=== PATIENT | male | born 1930 | race Caucasian/White ===

== ENCOUNTER 2018-07-19 20:38 | Inpatient (IN) | payer MEDICARE, BC ==
[~2018-07-19] VITALS: Ht 175.3 cm; Wt 86.2 kg
[2018-07-19 21:09] LABS: BASOPHILS # (AUTO) 0.1 K/uL (0.0-8.0); BASOPHILS % (AUTO) 1.1 % (0.0-2.0); EOSINOPHILS # (AUTO) 0.3 K/uL (0.0-0.7); EOSINOPHILS % (AUTO) 6.4 % (0.0-7.0); HEMATOCRIT 30.7 % (36.7-47.1); HEMOGLOBIN 10.3 g/dL (12.5-16.3); LYMPHOCYTES # (AUTO) 1.5 K/uL (20.0-40.0); LYMPHOCYTES % (AUTO) 29.8 % (20.5-51.5); MEAN CORPUSCULAR HEMOGLOBIN 30.8 uug (23.8-33.4); MEAN CORPUSCULAR HGB CONC 34 g/dL (32.5-36.3); MONOCYTES # (AUTO) 0.7 K/uL (2.0-10.0); MONOCYTES % (AUTO) 12.6 % (0.0-11.0); NEUTROPHILS # (AUTO) 2.6 K/uL (1.8-8.9); NEUTROPHILS % (AUTO) 50.1 % (38.5-71.5); PLATELET COUNT (AUTO) 191 K/uL (152-348); RED BLOOD CELL COUNT(AUTO) 3.33 MIL/uL (4.06-5.63); WHITE BLOOD COUNT (AUTO) 5.2 K/uL (3.6-10.2)
[2018-07-19 21:14] LABS: CARBON DIOXIDE 27 mmol/L (21-32); CHLORIDE 108 mmol/L (98-107); CREATININE 1.8 mg/dL (0.6-1.3); GLUCOSE 120 mg/dL (74-106); POTASSIUM 4.1 mmol/L (3.5-5.1); UREA NITROGEN, BLOOD 33 mg/dL (7-18)
[2018-07-19 21:20] LABS: ACETAMINOPHEN 5.2 ug/mL (10-30); ALANINE AMINOTRANSFERASE 10 U/L (16-63); ALKALINE PHOSPHATASE 93 U/L (50-136); ASPARTATE AMINOTRANSFERASE 16 U/L (15-37); BILIRUBIN,DIRECT 0.1 mg/dL (0.0-0.2); BILIRUBIN,TOTAL 0.2 mg/dL (0.2-1.0); TOTAL PROTEIN, SERUM 6.4 g/dL (6.4-8.2)
[2018-07-19 21:27] LABS: ETHANOL < 3 MG/DL (0-0)
[2018-07-19] MEDS ORDERED: BREX0.5T PO (21:42)
[2018-07-19] MEDS ORDERED: ACET-73 PO ×2 (21:42)
[2018-07-19] MEDS ORDERED: ALEN70TA45 PO (21:42)
[2018-07-19] MEDS ORDERED: DULO30CA51 PO (21:42)
[2018-07-19] MEDS ORDERED: ADVAIR 230/21 IH (21:42)
[2018-07-19] MEDS ORDERED: TRIA15CR2 TP (21:42)
[2018-07-19] MEDS ORDERED: PSYLLIUM PO (21:42)
[2018-07-19] MEDS ORDERED: CLOT15CR4 TP (21:42)
[2018-07-19] MEDS ORDERED: DONE10TA44 PO (21:42)
[2018-07-19] MEDS ORDERED: LEVO75TA7 PO (21:42)
[2018-07-19] MEDS ORDERED: OLAN2.5T3 PO (21:42)
[2018-07-19] MEDS ORDERED: PSYL0.525 PO (21:42)
[2018-07-19] MEDS ORDERED: CHOL100045 PO (21:42)
[2018-07-19] MEDS ORDERED: ATOR10TA PO (21:42)
[2018-07-19] MEDS ORDERED: MEMA28CA5 PO (21:42)
[2018-07-19] MEDS ORDERED: CARB-93 PO (21:42)
[2018-07-19] MEDS ORDERED: PANT40TA4 PO (21:42)
[2018-07-19] MEDS ORDERED: TAMS0.4C34 PO (21:42)
[2018-07-19] MEDS ORDERED: BENZ0.5T43 PO (21:42)
[2018-07-19] MEDS ORDERED: RIVA10TA PO (21:42)
[2018-07-19] MEDS ORDERED: GABA-532 PO (21:42)
[2018-07-19] MEDS ORDERED: DOCU100C36 PO (21:42)
[2018-07-19 21:48] LABS: THYROID STIMULATING HORMONE 1.068 mIU/mL (0.358-3.740)
[2018-07-19] MEDS ORDERED: IPRATROPIUM BROMIDE 0.5 MG/2.5 ML NEBU NEB ONE (22:30)
[2018-07-19] MEDS ORDERED: ALBUTEROL SULFATE 2.5 MG/3 ML NEBU NEB ONE (22:30)
[2018-07-19] MEDS ORDERED: IPRATROPIUM BROMIDE 0.5 MG/2.5 ML NEBU ONE (22:36)
[2018-07-19] MEDS ORDERED: ALBUTEROL SULFATE 2.5 MG/ 0.5 ML NEBU ONE (22:37)
[2018-07-19 23:00] VITALS: BP 146/67
[2018-07-19] MEDS ORDERED: MAG HYDROX/AL HYDROX/SIMETH 30 ML LIQUID UDC PO PRN (23:00)
[2018-07-19] MEDS ORDERED: MAGNESIUM HYDROXIDE 30 ML LIQUID UDC PO PRN (23:00)
[2018-07-19] MEDS ORDERED: LORAZEPAM 0.5 MG TABLET PO PRN (23:45)
[2018-07-20] MEDS: TEMAZEPAM 7.5 MG CAPSULE PO PRN ×2 (00:09→22:58)
[2018-07-20] MEDS ORDERED: ALBUTEROL SULFATE 2.5 MG/ 0.5 ML NEBU NEB PRN (07:00)
[2018-07-20 08:00] VITALS: BP 145/71
[2018-07-20] MEDS: ALBUTEROL SULFATE 2.5 MG/3 ML NEBU NEB PRN ×2 (08:54→21:08)
[2018-07-20] MEDS ORDERED: DOCUSATE SODIUM 100 MG CAPSULE PO PRN (10:15)
[2018-07-20] MEDS: ACETAMINOPHEN 325 MG TABLET PO PRN ×2 (10:51→22:58)
[2018-07-20] MEDS: CARBIDOPA/LEVODOPA 25-100MG TABLET PO SCH ×2 (12:31→16:27)
[2018-07-20] MEDS ORDERED: PNEUMOCOCCAL 23-VAL P-SAC VAC 0.5 ML VIAL IM ONE (13:00)
[2018-07-20 16:00] VITALS: BP 155/73
[2018-07-20] MEDS: DULOXETINE 30 MG CAPSULE.DR PO SCH (16:56)
[2018-07-20] MEDS: RIVAROXABAN 15 MG TABLET PO SCH (16:57)
[2018-07-20] MEDS ORDERED: CLOTRIMAZOLE/BETAMET DIPROP CREAM 15 GM TUBE TP SCH (17:00)
[2018-07-20] MEDS ORDERED: TRIAMCINOLONE ACET 0.5% CREAM 15 GM TUBE TP SCH (17:00)
[2018-07-20 20:37] VITALS: BP 136/76
[2018-07-20] MEDS: DIVALPROEX 125 MG TABLET.DR PO SCH (20:53)
[2018-07-20] MEDS: OLANZAPINE 2.5 MG TABLET PO SCH (20:53)
[2018-07-20] MEDS: TAMSULOSIN HCL 0.4 MG CAP.SR.24H PO SCH (20:53)
[2018-07-20] MEDS: DONEPEZIL 5 MG TABLET PO SCH (20:54)
[2018-07-20] MEDS: ATORVASTATIN 10 MG TABLET PO SCH (20:54)
[2018-07-20] MEDS ORDERED: MEMANTINE HCL 5 MG TABLET PO SCH (21:00)
[2018-07-20] MEDS ORDERED: GABAPENTIN 100 MG CAPSULE PO SCH (21:00)
[2018-07-20] MEDS ORDERED: FLUTICASONE/SALMETEROL 250/50 INHALER INH SCH (21:00)
[2018-07-21] MEDS: PANTOPRAZOLE SODIUM 40 MG TABLET.DR PO SCH (06:36)
[2018-07-21] MEDS: LEVOTHYROXINE SODIUM 75 MCG TABLET PO SCH (06:36)
[2018-07-21 07:20] LABS: BASOPHILS # (AUTO) 0.1 K/uL (0.0-8.0); BASOPHILS % (AUTO) 1.1 % (0.0-2.0); EOSINOPHILS # (AUTO) 0.3 K/uL (0.0-0.7); EOSINOPHILS % (AUTO) 6.3 % (0.0-7.0); HEMATOCRIT 28.6 % (36.7-47.1); HEMOGLOBIN 9.7 g/dL (12.5-16.3); LYMPHOCYTES # (AUTO) 1.2 K/uL (20.0-40.0); LYMPHOCYTES % (AUTO) 21.6 % (20.5-51.5); MEAN CORPUSCULAR HEMOGLOBIN 30.2 uug (23.8-33.4); MEAN CORPUSCULAR HGB CONC 34 g/dL (32.5-36.3); MEAN CORPUSCULAR VOLUME 89.4 fL (73.0-96.2); MONOCYTES # (AUTO) 0.5 K/uL (2.0-10.0); MONOCYTES % (AUTO) 9.2 % (0.0-11.0); NEUTROPHILS # (AUTO) 3.4 K/uL (1.8-8.9); NEUTROPHILS % (AUTO) 61.8 % (38.5-71.5); PLATELET COUNT (AUTO) 176 K/uL (152-348); WHITE BLOOD COUNT (AUTO) 5.6 K/uL (3.6-10.2)
[2018-07-21 07:30] VITALS: BP 135/69
[2018-07-21 07:33] LABS: ALANINE AMINOTRANSFERASE 13 U/L (16-63); ALKALINE PHOSPHATASE 63 U/L (50-136); ASPARTATE AMINOTRANSFERASE 13 U/L (15-37); BILIRUBIN,TOTAL 0.3 mg/dL (0.2-1.0); CARBON DIOXIDE 27 mmol/L (21-32); CHLORIDE 108 mmol/L (98-107); CREATININE 1.3 mg/dL (0.6-1.3); GLUCOSE 95 mg/dL (74-106); MAGNESIUM 2.1 mg/dL (1.8-2.4); PHOSPHOROUS 3.7 mg/dL (2.5-4.9); POTASSIUM 4.2 mmol/L (3.5-5.1); TOTAL PROTEIN, SERUM 5.9 g/dL (6.4-8.2); UREA NITROGEN, BLOOD 26 mg/dL (7-18)
[2018-07-21] MEDS ORDERED: RIVAROXABAN 10 MG TABLET PO SCH (09:00)
[2018-07-21] MEDS: DULOXETINE 30 MG CAPSULE.DR PO SCH ×2 (09:18→16:21)
[2018-07-21] MEDS: DIVALPROEX 125 MG TABLET.DR PO SCH ×2 (09:18→21:19)
[2018-07-21] MEDS: CHOLECALCIFEROL 1,000 UNIT TABLET PO SCH (09:19)
[2018-07-21] MEDS: CARBIDOPA/LEVODOPA 25-100MG TABLET PO SCH ×3 (09:19→16:21)
[2018-07-21] MEDS: FLUTICASONE/VILANTEROL 1 EACH BLST.W.DEV INH SCH (09:20)
[2018-07-21 15:55] VITALS: BP 134/76
[2018-07-21] MEDS: ACETAMINOPHEN 325 MG TABLET PO PRN (16:20)
[2018-07-21] MEDS: RIVAROXABAN 15 MG TABLET PO SCH (18:18)
[2018-07-21 20:00] VITALS: BP 163/71
[2018-07-21] MEDS: OLANZAPINE 2.5 MG TABLET PO SCH (21:20)
[2018-07-21] MEDS: ATORVASTATIN 10 MG TABLET PO SCH (21:20)
[2018-07-21] MEDS: TAMSULOSIN HCL 0.4 MG CAP.SR.24H PO SCH (21:20)
[2018-07-21] MEDS: DONEPEZIL 5 MG TABLET PO SCH (21:20)
[2018-07-21] MEDS: TEMAZEPAM 7.5 MG CAPSULE PO PRN (23:20)
[2018-07-22] MEDS: PANTOPRAZOLE SODIUM 40 MG TABLET.DR PO SCH (06:53)
[2018-07-22] MEDS: LEVOTHYROXINE SODIUM 75 MCG TABLET PO SCH (06:53)
[2018-07-22 08:12] VITALS: BP 121/66
[2018-07-22] MEDS: DIVALPROEX 125 MG TABLET.DR PO SCH ×2 (08:48→20:44)
[2018-07-22] MEDS: CHOLECALCIFEROL 1,000 UNIT TABLET PO SCH (08:48)
[2018-07-22] MEDS: DULOXETINE 30 MG CAPSULE.DR PO SCH ×2 (08:48→16:23)
[2018-07-22] MEDS: FLUTICASONE/VILANTEROL 1 EACH BLST.W.DEV INH SCH (08:56)
[2018-07-22] MEDS: CARBIDOPA/LEVODOPA 25-100MG TABLET PO SCH ×3 (08:57→16:23)
[2018-07-22] MEDS: ALBUTEROL SULFATE 2.5 MG/3 ML NEBU NEB PRN ×2 (14:16→22:44)
[2018-07-22 16:05] VITALS: BP 136/68
[2018-07-22] MEDS: RIVAROXABAN 15 MG TABLET PO SCH (17:24)
[2018-07-22 19:38] VITALS: BP 141/76
[2018-07-22] MEDS: ATORVASTATIN 10 MG TABLET PO SCH (20:44)
[2018-07-22] MEDS: TAMSULOSIN HCL 0.4 MG CAP.SR.24H PO SCH (20:44)
[2018-07-22] MEDS: DONEPEZIL 5 MG TABLET PO SCH (20:44)
[2018-07-22] MEDS: OLANZAPINE 2.5 MG TABLET PO SCH (20:44)
[2018-07-22] MEDS: TEMAZEPAM 7.5 MG CAPSULE PO PRN (22:35)
[2018-07-23] MEDS: LEVOTHYROXINE SODIUM 75 MCG TABLET PO SCH (06:29)
[2018-07-23] MEDS: PANTOPRAZOLE SODIUM 40 MG TABLET.DR PO SCH (06:29)
[2018-07-23 07:30] VITALS: BP 115/70
[2018-07-23] MEDS: CARBIDOPA/LEVODOPA 25-100MG TABLET PO SCH ×3 (08:28→16:19)
[2018-07-23] MEDS: DULOXETINE 30 MG CAPSULE.DR PO SCH ×2 (08:30→16:19)
[2018-07-23] MEDS: DIVALPROEX 125 MG TABLET.DR PO SCH ×2 (08:30→20:09)
[2018-07-23] MEDS: CHOLECALCIFEROL 1,000 UNIT TABLET PO SCH (08:30)
[2018-07-23] MEDS: FLUTICASONE/VILANTEROL 1 EACH BLST.W.DEV INH SCH (08:35)
[2018-07-23 15:40] VITALS: BP 111/55
[2018-07-23] MEDS: RIVAROXABAN 15 MG TABLET PO SCH (17:21)
[2018-07-23 19:40] VITALS: BP 121/67
[2018-07-23] MEDS: DONEPEZIL 5 MG TABLET PO SCH (20:09)
[2018-07-23] MEDS: ATORVASTATIN 10 MG TABLET PO SCH (20:09)
[2018-07-23] MEDS: TAMSULOSIN HCL 0.4 MG CAP.SR.24H PO SCH (20:09)
[2018-07-23] MEDS: OLANZAPINE 2.5 MG TABLET PO SCH (20:09)
[2018-07-23] MEDS: TEMAZEPAM 7.5 MG CAPSULE PO PRN (22:01)
[2018-07-23 22:33] LABS: *BILIRUBIN,URIN NEGATIVE (NEGATIVE); *BLOOD, URINE NEGATIVE (NEGATIVE); *CLARITY,URINE CLEAR (CLEAR); *COLOR,URINE YELLOW (YELLOW); *KETONES,URINE NEGATIVE (NEGATIVE); *PROTEIN,URINE NEGATIVE (NEGATIVE); *UROBILINOGEN,URINE 0.2 E.U./dl (NORMAL); LEUKOCYTE ESTERASE ,URINE NEGATIVE (NEGATIVE); NITRITE, URINE NEGATIVE (NEGATIVE); UGLUCOSE NEGATIVE (NEGATIVE)
[2018-07-23 22:37] LABS: *CREATININE,URINE 111.4 mg/dL (30-125); *URINE TOTAL PROTEIN RANDOM 16.1 mg/dL (<150/24HR)
[2018-07-23 22:39] LABS: BACTERIA,URINE FEW /HPF (NONE SEEN); RBC,URINE NONE SEEN /HPF (0-3); SQUAMOUS EPITHELIAL CELL,UR FEW /HPF (NONE SEEN)
[2018-07-24] MEDS ORDERED: ALENDRONATE SODIUM 70 MG TABLET PO SCH (06:00)
[2018-07-24] MEDS: LEVOTHYROXINE SODIUM 75 MCG TABLET PO SCH (06:24)
[2018-07-24] MEDS: PANTOPRAZOLE SODIUM 40 MG TABLET.DR PO SCH (06:24)
[2018-07-24 07:02] LABS: BASOPHILS % (AUTO) 0.8 % (0.0-2.0); EOSINOPHILS # (AUTO) 0.3 K/uL (0.0-0.7); EOSINOPHILS % (AUTO) 5.7 % (0.0-7.0); HEMATOCRIT 30.8 % (36.7-47.1); HEMOGLOBIN 10.5 g/dL (12.5-16.3); LYMPHOCYTES # (AUTO) 1.4 K/uL (20.0-40.0); LYMPHOCYTES % (AUTO) 28.9 % (20.5-51.5); MEAN CORPUSCULAR HEMOGLOBIN 30.9 uug (23.8-33.4); MEAN CORPUSCULAR HGB CONC 34 g/dL (32.5-36.3); MEAN CORPUSCULAR VOLUME 90.9 fL (73.0-96.2); MONOCYTES # (AUTO) 0.6 K/uL (2.0-10.0); MONOCYTES % (AUTO) 11.5 % (0.0-11.0); NEUTROPHILS # (AUTO) 2.7 K/uL (1.8-8.9); NEUTROPHILS % (AUTO) 53.1 % (38.5-71.5); PLATELET COUNT (AUTO) 194 K/uL (152-348); RED BLOOD CELL COUNT(AUTO) 3.39 MIL/uL (4.06-5.63)
[2018-07-24 07:17] LABS: ALANINE AMINOTRANSFERASE 15 U/L (16-63); ALKALINE PHOSPHATASE 61 U/L (50-136); ASPARTATE AMINOTRANSFERASE 13 U/L (15-37); BILIRUBIN,TOTAL 0.3 mg/dL (0.2-1.0); CARBON DIOXIDE 28 mmol/L (21-32); CHLORIDE 106 mmol/L (98-107); CREATININE 1.5 mg/dL (0.6-1.3); GLUCOSE 88 mg/dL (74-106); POTASSIUM 4.4 mmol/L (3.5-5.1); TOTAL PROTEIN, SERUM 6.1 g/dL (6.4-8.2); UREA NITROGEN, BLOOD 31 mg/dL (7-18)
[2018-07-24 07:46] VITALS: BP 128/65
[2018-07-24] MEDS: DIVALPROEX 125 MG TABLET.DR PO SCH ×2 (08:26→20:29)
[2018-07-24] MEDS: DULOXETINE 30 MG CAPSULE.DR PO SCH ×2 (08:26→16:13)
[2018-07-24] MEDS: CHOLECALCIFEROL 1,000 UNIT TABLET PO SCH (08:26)
[2018-07-24] MEDS: FLUTICASONE/VILANTEROL 1 EACH BLST.W.DEV INH SCH (08:29)
[2018-07-24] MEDS: CARBIDOPA/LEVODOPA 25-100MG TABLET PO SCH ×3 (08:29→16:13)
[2018-07-24 15:48] VITALS: BP 101/57
[2018-07-24] MEDS: RIVAROXABAN 15 MG TABLET PO SCH (17:15)
[2018-07-24] MEDS: TAMSULOSIN HCL 0.4 MG CAP.SR.24H PO SCH (20:28)
[2018-07-24] MEDS: ATORVASTATIN 10 MG TABLET PO SCH (20:28)
[2018-07-24] MEDS: DONEPEZIL 5 MG TABLET PO SCH (20:29)
[2018-07-24] MEDS: OLANZAPINE 2.5 MG TABLET PO SCH (20:29)
[2018-07-25] MEDS: PANTOPRAZOLE SODIUM 40 MG TABLET.DR PO SCH (06:54)
[2018-07-25] MEDS: LEVOTHYROXINE SODIUM 75 MCG TABLET PO SCH (06:54)
[2018-07-25 08:03] VITALS: BP 137/59
[2018-07-25] MEDS: DULOXETINE 30 MG CAPSULE.DR PO SCH ×2 (08:16→16:10)
[2018-07-25] MEDS: ACETAMINOPHEN 325 MG TABLET PO PRN ×3 (08:16→22:14)
[2018-07-25] MEDS: CHOLECALCIFEROL 1,000 UNIT TABLET PO SCH (08:16)
[2018-07-25] MEDS: DIVALPROEX 125 MG TABLET.DR PO SCH ×2 (08:16→20:13)
[2018-07-25] MEDS: CARBIDOPA/LEVODOPA 25-100MG TABLET PO SCH ×3 (08:16→16:10)
[2018-07-25] MEDS: FLUTICASONE/VILANTEROL 1 EACH BLST.W.DEV INH SCH (08:18)
[2018-07-25] MEDS: ALBUTEROL SULFATE 2.5 MG/3 ML NEBU NEB PRN (13:03)
[2018-07-25 16:57] VITALS: BP 137/62
[2018-07-25] MEDS: RIVAROXABAN 15 MG TABLET PO SCH (18:00)
[2018-07-25 20:13] VITALS: BP 128/69
[2018-07-25] MEDS: DONEPEZIL 5 MG TABLET PO SCH (20:13)
[2018-07-25] MEDS: OLANZAPINE 2.5 MG TABLET PO SCH (20:13)
[2018-07-25] MEDS: TAMSULOSIN HCL 0.4 MG CAP.SR.24H PO SCH (20:13)
[2018-07-25] MEDS: ATORVASTATIN 10 MG TABLET PO SCH (20:13)
[2018-07-25] MEDS: TEMAZEPAM 7.5 MG CAPSULE PO PRN (22:14)
[2018-07-26] MEDS: LEVOTHYROXINE SODIUM 75 MCG TABLET PO SCH (06:16)
[2018-07-26] MEDS: PANTOPRAZOLE SODIUM 40 MG TABLET.DR PO SCH (06:16)
[2018-07-26 07:30] VITALS: BP 123/72
[2018-07-26] MEDS: DIVALPROEX 125 MG TABLET.DR PO SCH (08:09)
[2018-07-26] MEDS: FLUTICASONE/VILANTEROL 1 EACH BLST.W.DEV INH SCH (08:09)
[2018-07-26] MEDS: CARBIDOPA/LEVODOPA 25-100MG TABLET PO SCH ×2 (08:09→11:49)
[2018-07-26] MEDS: CHOLECALCIFEROL 1,000 UNIT TABLET PO SCH (08:09)
[2018-07-26] MEDS: DULOXETINE 30 MG CAPSULE.DR PO SCH (08:09)
== END 2018-07-26 14:25 | DRG 885 ==
LOC: ER 20:38 → GPS 22:40
PROVIDERS: ADMIT Psychiatry & Neurology Psychosomatic Medicine
DX: F33.3 Major depressive disorder, recurrent, severe with psychotic symptoms (principal); N17.0 Acute kidney failure with tubular necrosis; E44.0 Moderate protein-calorie malnutrition; K21.9 Gastro-esophageal reflux disease without esophagitis; N40.0 Benign prostatic hyperplasia without lower urinary tract symptoms; I48.2 Chronic atrial fibrillation; Z79.01 Long term (current) use of anticoagulants; Z96.659 Presence of unspecified artificial knee joint; E03.9 Hypothyroidism, unspecified; G20 Parkinson's disease; J44.9 Chronic obstructive pulmonary disease, unspecified; I10 Essential (primary) hypertension; Z68.28 Body mass index [BMI] 28.0-28.9, adult; E83.51 Hypocalcemia; E88.09 Other disorders of plasma-protein metabolism, not elsewhere classified; K59.00 Constipation, unspecified; Z79.899 Other long term (current) drug therapy; F03.90 Unspecified dementia, unspecified severity, without behavioral disturbance, psychotic disturbance, mood disturbance, and anxiety
CPT/HCPCS: 36415; 70030-TC; 71045; 83735; 84100; 84156; 84300; 84443; 85025; 85730; 90732; 93005; 94640; A4663; G0480; G0480-TC; J3590; J8499